=== PATIENT | male | born 1975 | race Caucasian/White ===

== ENCOUNTER 2017-02-07 07:42 | Day surgery (SDC) | payer OTHER ==
[2017-02-06 09:57] VITALS: Ht 170.2 cm; Wt 89.0 kg
[2017-02-07] VITALS (11 sets, daily range): BP systolic 100–132; BP diastolic 47–74; PULSE 52–59; RESP 16–23
[~2017-02-07] VITALS: Ht 170.2 cm; Wt 89.0 kg
[~2017-02-07 07:42] MED LIST: CEFAZOLIN 2 GM/50 ML (PMX) 50 ML IVPB ONE; SOD CHLORIDE 0.9% 1,000 ML IV SCH
[2017-02-07] MEDS ORDERED: BUPIVACAINE 0.25% (MPF) 10 ML 10 ML VIAL ONE (08:41)
[2017-02-07] MEDS ORDERED: MIDAZOLAM 1 MG/ML 2 ML INJ ONE (08:57)
[2017-02-07] MEDS ORDERED: PROPOFOL 20 ML ONE (08:57)
[2017-02-07] MEDS ORDERED: LIDOCAINE 1% (MDV) 20 ML INJ ONE (08:59)
[2017-02-07] MEDS ORDERED: CEFAZOLIN 1 GM INJ ONE (09:13)
[2017-02-07] MEDS ORDERED: DEXAMETHASONE 4 MG/ML 1 ML INJ ONE (09:15)
[2017-02-07] MEDS ORDERED: KETOROLAC 30 MG INJ ONE (09:15)
[2017-02-07] MEDS ORDERED: ONDANSETRON 4 MG INJ ONE (09:15)
--- NOTE | 2017-02-07 09:29 | OPR ---
Date/Time of Note Date/Time of Note DATE: 02/07/17 TIME: 09:27 Operative Report Procedure Date: February 07, 2017 Preoperative Diagnosis posterior large neck mass Postoperative Diagnosis same Operation Performed excision of large posterior neck mass 7 cm incision and 5 cm mass localized adjacent tissue transfer with the use of skin flaps with 14 sq cm defect therapeutic injection of marcaine into subcutaneous area Surgeon: Carolyn LONG Anesthesia: general Specimens posterior neck mass Carolyn LONG February 07, 2017 09:29
[2017-02-07] MEDS ORDERED: HYDROCODONE/APAP (5/325) TAB PO ONE (09:30)
[2017-02-07] MEDS ORDERED: DIPHENHYDRAMINE 50 MG INJ IV PRN (09:30)
[2017-02-07] MEDS ORDERED: HYDROmorphONE (0.2 MG/ML) 10ML SYG IV PRN ×2 (09:30)
[2017-02-07] MEDS ORDERED: MEPERIDINE 25 MG INJ IV PRN (09:30)
--- NOTE | 2017-02-07 09:48 | OPR ---
DATE OF OPERATION: 02/07/2017 INDICATION: This is a 41-year-old male with a large posterior neck mass. He requests surgical exci enrrique. The risks, alternatives, benefits, and personnel were discussed with the patient. Patient ex pressed understanding and consented to the operation. PREOPERATIVE DIAGNOSIS: Posterior neck mass. POSTOPERATIVE DIAGNOSIS: Posterior neck mass. OPERATION PERFORMED: 1. Excision of posterior neck mass with a 7-cm size incision and 5-cm size mass. 2. Localized adjacent tissue transfer with the use of skin flaps with a 14 square cm defect. 3. Therapeutic localized injection [place] [address]. SURGEON: Angel Flannery MD SPECIMEN: Posterior neck mass. COMPLICATIONS: None. ANESTHESIA: General. DESCRIPTION OF PROCEDURE: The patient was taken to the OR and prepped and draped in the usual steri le fashion. A surgical timeout was performed. IV antibiotics were given. A transverse incision wa s made with a 10 blade over the posterior neck mass. Dissection cautery was carried down to the mass and circumferentially excised. The mass was extending all the way down to the muscle. Due to the large tissue defect, localized adjacent tissue transfer with the use of skin flaps was performed. M ultilayer closure with interrupted 3-0 Vicryl and skin ama. Local anesthesia was therapeuticall y injected along the incision line. There was good hemostasis. Dry dressings were applied. Dictated By: ANGEL MEJIA/FLORINA Conf#: [id number] DID#: [id number]
== END 2017-02-07 11:03 | disposition home or self-care (01) ==
LOC: SDS 07:42
PROVIDERS: ATTEND Surgery
DX: D17.0 Benign lipomatous neoplasm of skin and subcutaneous tissue of head, face and neck (principal)
CPT/HCPCS: 14040; 88307; J0690; J1100; J1885; J2250; J2405